=== PATIENT | female | born 1980 | race Native Hawaiian/Other Pacific Islander ===

== ENCOUNTER 2016-09-26 21:08 | Observation (INO) | payer OTHER ==
[~2016-09-26] VITALS: Ht 165.1 cm; Wt 87.2 kg
[2016-09-26 21:23] VITALS: BP 125/77; TEMP 98.3
[2016-09-26 23:37] LABS: PLATELET COUNT 104 K/uL (152-353)
[2016-09-26 23:58] LABS: POTASSIUM 4.1 mmol/L (3.6-5.2); SODIUM 133 mmol/L (136-145)
[2016-09-27 05:08] VITALS: BP 140/83; TEMP 98.2; Ht 165.1 cm; Wt 87.2 kg
--- NOTE | 2016-09-27 05:42 | NUR ---
PT ARRIVED TO FLOOR BY WHEELCHAIR FROM ER. PT AWAKE AND COGNATIVE. PT MAKING JERKING MOVEMENTS WHILE LAYING IN BED. ORIENTED TO ROOM.
[2016-09-27 08:00] VITALS: BP 116/71; TEMP 98.4
[2016-09-27 10:21] LABS: PLATELET COUNT 327 K/uL (152-353)
[2016-09-27 10:56] LABS: POTASSIUM 4.1 mmol/L (3.6-5.2); SODIUM 136 mmol/L (136-145)
[2016-09-27 12:00] VITALS: BP 148/84; TEMP 98
[2016-09-27 16:00] VITALS: BP 133/85; TEMP 98.1
[2016-09-27 20:00] VITALS: BP 148/84; TEMP 99
[2016-09-28] VITALS: BP 126/56; TEMP 99.2
[2016-09-28 03:41] LABS: PLATELET COUNT 341 K/uL (152-353)
[2016-09-28 03:45] LABS: POTASSIUM 3.5 mmol/L (3.6-5.2); SODIUM 140 mmol/L (136-145)
[2016-09-28 04:00] VITALS: BP 128/68; TEMP 98.3
[2016-09-28 07:47] VITALS: BP 135/72; TEMP 98.6
[2016-09-28 12:00] VITALS: BP 116/56; TEMP 98.6
[2016-09-28 16:00] VITALS: BP 114/62; TEMP 98.4
--- NOTE | 2016-09-28 18:34 | NUR ---
WARM COMPRESSES APPLIED TO R ARM WHERE EDEMA
[2016-09-28 20:00] VITALS: BP 119/72; TEMP 98.4
[2016-09-29] VITALS: BP 125/69; TEMP 98.3
[2016-09-29 04:00] VITALS: BP 105/52; TEMP 98
[2016-09-29 08:00] VITALS: BP 112/67; TEMP 98.3
[2016-09-29 08:31] LABS: PLATELET COUNT 262 K/uL (152-353)
[2016-09-29 08:43] LABS: POTASSIUM 3.1 mmol/L (3.6-5.2); SODIUM 137 mmol/L (136-145)
[2016-09-29 12:00] VITALS: BP 117/79; TEMP 97.8
--- NOTE | 2016-09-29 12:10 | NUR ---
1200 PT HAD ONE PAD COUNT THIS SHIFT WITH SMALL AMT OF RED BLOOD NOTED TO YANNA-PAD. NO CLOTS NOTED. PT DENIES ANY CO
--- NOTE | 2016-09-29 13:24 | NUR ---
1320 PT LEFT WITH FAMILY NO DISTRESS NOTED
== END 2016-09-29 13:25 | disposition home or self-care (01) ==
LOC: ED 21:08 → MED/SURG 09-27 03:34
PROVIDERS: Emergency Medicine; ADMIT Specialist
DX: O21.0 Mild hyperemesis gravidarum (principal); F12.10 Cannabis abuse, uncomplicated; F14.10 Cocaine abuse, uncomplicated; R60.9 Edema, unspecified
CPT/HCPCS: 80053; 80307; 81000; 81025; 82150; 83735; 84702; 85027; 86318; 96361; 96365; 96366; 96367; 96374; 96375; 96376; 99220; 99284; G0378; G0479; J1200; J2405; J2550; J3490

== ENCOUNTER 2017-09-13 22:02 | Emergency (ER) | payer OTHER ==
[~2017-09-13] VITALS: Ht 165.1 cm; Wt 81.6 kg
[2017-09-13 23:08] VITALS: BP 129/82; TEMP 98.8
== END 2017-09-13 23:09 | disposition home or self-care (01) ==
LOC: ED 22:02
DX: G43.909 Migraine, unspecified, not intractable, without status migrainosus (principal)
CPT/HCPCS: 99282